=== PATIENT | female | born 1965 | race Two or more races ===

== ENCOUNTER → 2017-01-31 | Outpatient (CLI) | payer MEDICAID | LOC: BMCIMAGING 12:46 | PROVIDERS: ATTEND Nurse Practitioner | DX: N64.4 Mastodynia (principal) | CPT/HCPCS: G0204 ==

== ENCOUNTER → 2017-02-01 | Outpatient (CLI) | payer MEDICAID | LOC: CIMAGING 09:00 | PROVIDERS: ATTEND Nurse Practitioner | DX: D25.9 Leiomyoma of uterus, unspecified (principal); N83.201 Unspecified ovarian cyst, right side; N83.202 Unspecified ovarian cyst, left side | CPT/HCPCS: 76856-PO ==